=== PATIENT | male | born 1935 | race Caucasian/White ===

== ENCOUNTER → 2017-10-11 13:08 | Outpatient (CLI) | payer MEDICARE, OTHER, SELFPAY ==
[2017-10-11 13:55] LABS: Hematocrit 37.1 % (41-53); Hemoglobin 12.3 g/dL (13.5-17.5)
[2017-10-11 14:16] LABS: B Type Natriuretic Peptide 59.6 (<100)
[2017-10-11 14:35] LABS: BUN Creatinine Ratio 23.3 (6-22); Blood Urea Nitrogen 28 mg/dL (9-20); Calcium 8.9 mg/dL (8.4-10.2); Carbon Dioxide 25 mmol/L (22-32); Chloride 102 mmol/L (98-107); Estimated Glomerular Filt Rate 58.1 mL/min (>60); Glucose 180 mg/dL (80-110); HEMOLYSIS 22 (0-50); Potassium 4.2 mmol/L (3.4-5.1); Sodium 142 mmol/L (137-145)
[2017-10-11 16:07] LABS: Creatinine Urine Random 172.2 mg/dL; Protein (Total) Urine Random 166 mg/dL (0-12); Protein Creatinine Ratio Urine 0.96 GRAM/24H
== END ==
PROVIDERS: Student in an Organized Health Care Education/Training Program; PCP Family Medicine; Visit Provider Family Medicine
DX: N00.9 Acute nephritic syndrome with unspecified morphologic changes (principal); N05.9 Unspecified nephritic syndrome with unspecified morphologic changes; D64.9 Anemia, unspecified; R80.9 Proteinuria, unspecified; I50.32 Chronic diastolic (congestive) heart failure
CPT/HCPCS: 36415; 80048; 82570; 83880; 84156; 85014; 85018

== ENCOUNTER → 2017-10-25 13:06 | Outpatient (CLI) | payer MEDICARE, OTHER, SELFPAY ==
[2017-10-27 17:07] LABS: Homocysteine 8.6 umol/L (< 11.4)
[2017-10-31 21:26] LABS: Methylmalonic Acid 138 nmol/L (87-318)
== END ==
PROVIDERS: PCP Family Medicine; Visit Provider Physician Assistant
DX: D51.0 Vitamin B12 deficiency anemia due to intrinsic factor deficiency (principal); E53.8 Deficiency of other specified B group vitamins
CPT/HCPCS: 36415; 83090; 83921

== ENCOUNTER → 2017-10-26 15:31 | Outpatient (CLI) | payer MEDICARE, OTHER, SELFPAY ==
--- NOTE | 2017-10-26 | DI.MRI.S_ITS ---
PROCEDURE: MR HEAD/BRAIN WO/W CON INDICATIONS: N TECHNIQUE: Noncontrast axial T1 spin echo, axial T2 fast spin echo, sagittal and axial FLAIR, coronal T2 fast spin echo, axial gradient echo, axial diffusion and ADC through the brain. After the administration of contrast, axial and coronal 3D VIBE or T1 spin echo with fat saturation through the brain. COMPARISON: MRI from 06/30/[address] from 02/23/2006. FINDINGS: Image quality: Excellent. CSF Spaces: Basal cisterns are patent. No extra-axial fluid collections. Ventricles are normal in size and shape. Brain: Interval development of abnormally increased T2 signal in the right parietal lobe with mild associated expansion of the gyri overall involving an area measuring 4.1 x 3.3 CM. There is decreased T1 signal and no associated enhancement. No abnormal restricted diffusion to suggest acute infarction. No masses midline shift or abnormal enhancement. There is increased T2 signal in the subcortical and periventricular white matter. Skull and face: Calvarial marrow is normal in signal. Orbits appear normal. Sinuses: Sinuses and mastoids appear clear. IMPRESSION: 1. Patchy, ill-defined area of increased T2 signal predominantly in the white matter of the right parietal lobe with no associated abnormal enhancement or restricted diffusion. Findings are new since 2004 and may represent subacute/chronic infarction or a low-grade malignancy. Infection is possible but less likely. Recommend followup MRI with and without contrast in 3 months. 2. 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 Dictated by: Xander Solomon M.D. on 10/26/2017 at 17:20 Approved by: Xander Solomon M.D. on 10/26/2017 at 17:30
== END ==
PROVIDERS: PCP Family Medicine; Visit Provider Family Medicine
DX: F03.90 Unspecified dementia, unspecified severity, without behavioral disturbance, psychotic disturbance, mood disturbance, and anxiety (principal)
CPT/HCPCS: 70553; A9579

== ENCOUNTER → 2017-11-23 13:41 | Outpatient (CLI) | payer MEDICARE, OTHER, SELFPAY ==
[2017-11-23 15:20] LABS: Prostate Specific Antigen 0.182 ng/mL (0.10-4.00)
== END ==
PROVIDERS: PCP Family Medicine; Visit Provider Specialist
DX: N40.1 Benign prostatic hyperplasia with lower urinary tract symptoms (principal)
CPT/HCPCS: 36415; 84153

== ENCOUNTER → 2018-02-14 13:50 | Outpatient (CLI) | payer MEDICARE, OTHER, SELFPAY ==
[2018-02-14 14:30] LABS: Hematocrit 37.6 % (41-53); Hemoglobin 12.5 g/dL (13.5-17.5)
[2018-02-14 14:46] LABS: BUN Creatinine Ratio 22.1 (6-22); Blood Urea Nitrogen 31 mg/dL (9-20); Calcium 9.6 mg/dL (8.4-10.2); Carbon Dioxide 33 mmol/L (22-32); Chloride 98 mmol/L (98-107); Estimated Glomerular Filt Rate 48.6 mL/min (>60); Glucose 241 mg/dL (80-110); HEMOLYSIS 16 (0-50); Potassium 3.5 mmol/L (3.4-5.1); Sodium 143 mmol/L (137-145)
[2018-02-14 18:09] LABS: Protein (Total) Urine Random 22 mg/dL (0-12); Protein Creatinine Ratio Urine 0.73 GRAM/24H
[2018-02-17 14:01] LABS: Parathyroid Hormone Int 35 pg/mL (14-64)
== END ==
PROVIDERS: PCP Family Medicine; Visit Provider Student in an Organized Health Care Education/Training Program
DX: N05.9 Unspecified nephritic syndrome with unspecified morphologic changes (principal); I50.32 Chronic diastolic (congestive) heart failure; D64.9 Anemia, unspecified; N25.81 Secondary hyperparathyroidism of renal origin; R80.9 Proteinuria, unspecified
CPT/HCPCS: 36415; 80048; 82570; 83880; 83970; 84156; 85014; 85018

== ENCOUNTER → 2018-08-08 12:17 | Outpatient (CLI) | payer MEDICARE, OTHER, SELFPAY ==
[2018-08-08 13:24] LABS: Hematocrit 36.2 % (41-53)
[2018-08-08 15:36] LABS: Blood Urea Nitrogen 18 mg/dL (9-20); Carbon Dioxide 28 mmol/L (22-32); Chloride 98 mmol/L (98-107); Estimated Glomerular Filt Rate 58.1 mL/min (>60); Glucose 198 mg/dL (80-110); HEMOLYSIS < 15 (0-50); Potassium 4.2 mmol/L (3.4-5.1); Sodium 136 mmol/L (137-145)
[2018-08-08 16:03] LABS: Creatinine Urine Random 107.9 mg/dL; Protein (Total) Urine Random 135 mg/dL (0-12); Protein Creatinine Ratio Urine 1.25 GRAM/24H
[2018-08-11 15:41] LABS: Parathyroid Hormone Int 49 pg/mL (14-64)
== END ==
PROVIDERS: PCP Family Medicine; Visit Provider Student in an Organized Health Care Education/Training Program
DX: N05.9 Unspecified nephritic syndrome with unspecified morphologic changes (principal); D64.9 Anemia, unspecified; N25.81 Secondary hyperparathyroidism of renal origin; R80.9 Proteinuria, unspecified
CPT/HCPCS: 36415; 80048; 82570; 83970; 84156; 85014; 85018

== ENCOUNTER → 2019-02-20 08:54 | Outpatient (CLI) | payer MEDICARE, OTHER, SELFPAY ==
[2019-02-20 10:14] LABS: Hematocrit 36.1 % (41-53); Hemoglobin 11.8 g/dL (13.5-17.5)
[2019-02-20 10:29] LABS: BUN Creatinine Ratio 14.6 (6-22); Blood Urea Nitrogen 19 mg/dL (9-20); Calcium 9.6 mg/dL (8.4-10.2); Carbon Dioxide 32 mmol/L (22-32); Chloride 96 mmol/L (98-107); Estimated Glomerular Filt Rate 52.9 mL/min (>60); Glucose 266 mg/dL (80-110); HEMOLYSIS < 15 (0-50); Potassium 4.1 mmol/L (3.4-5.1); Sodium 138 mmol/L (137-145)
[2019-02-20 11:41] LABS: Creatinine Urine Random 69.1 mg/dL; Protein (Total) Urine Random 81 mg/dL (0-12); Protein Creatinine Ratio Urine 1.17 GRAM/24H
[2019-02-23 14:45] LABS: Parathyroid Hormone Int 13 pg/mL (14-64)
== END ==
PROVIDERS: PCP Student in an Organized Health Care Education/Training Program; Visit Provider Student in an Organized Health Care Education/Training Program
DX: R80.9 Proteinuria, unspecified (principal); D64.9 Anemia, unspecified; N05.9 Unspecified nephritic syndrome with unspecified morphologic changes; N25.81 Secondary hyperparathyroidism of renal origin
CPT/HCPCS: 36415; 80048; 82570; 83970; 84156; 85014; 85018